=== PATIENT | female | born 1950 | race Asian ===

== ENCOUNTER 2017-09-28 03:10 | Inpatient (IN) | END 2017-10-02 18:15 | disposition short-term general hospital (02) | DRG 149 ==

== ENCOUNTER 2017-10-02 19:14 | Inpatient (IN) | END 2017-10-16 16:08 | disposition home health service (06) | DRG 149 ==

== ENCOUNTER 2017-11-30 23:07 | Inpatient (IN) | END 2017-12-04 18:26 | DRG 872 ==